=== PATIENT | female | born 1940 | race Two or more races ===

== ENCOUNTER 2021-01-23 12:55 | Emergency (ER) | payer MEDICAID ==
[~2021-01-23] VITALS: Ht 182.9 cm; Wt 107.0 kg
[~2021-01-23 12:55] MED LIST: AZIT500T2 PO; GLIP10TA10 PO; LISI10TA26 PO; METF-416 PO; NAPR-681 PO; PIOG15TA6 PO
[2021-01-23] MEDS ORDERED: MORPHINE SULFATE 4 MG/ML CPJ (NOT FOR IM USE) IV STA (13:13)
[2021-01-23] MEDS ORDERED: ONDANSETRON HCL 4MG/2ML INJ IV STA (13:13)
[2021-01-23] MEDS ORDERED: SODIUM CHLORIDE 0.9% 500 ML IV ONE (13:15)
[2021-01-23 13:57] LABS: BASOPHILS % 1.1 % (0.0-2.0); EOSINOPHILS % 2.3 % (0.0-5.0); HEMATOCRIT. 40.2 % (36.0-48.0); HEMOGLOBIN. 13.5 g/dL (12.0-16.0); LYMPHOCYTES % 25.5 % (20.0-50.0); MEAN CORPUSCULAR HEMOGLOBIN 30.8 pg (28.0-32.0); MEAN CORPUSCULAR VOLUME 91.7 fL (81.0-99.0); MONOCYTES % 10.4 % (2.0-8.0); NEUTROPHILS % 60.7 % (40.0-76.0); PLATELET 170 x1000/uL (130-400); RED BLOOD CELL COUNT 4.39 mill/uL (4.2-5.4); RED CELL DISTRIBUTION WIDTH 12.9 % (11.6-14.6)
[2021-01-23 14:01] LABS: CHLORIDE 104 mEq/L (98-107)
[2021-01-23 15:16] LABS: PROTHROMBIN TIME 10.6 sec (9.6-11.0)
[2021-01-23 19:47] VITALS: BP 169/69
== END 2021-01-23 20:13 | disposition short-term general hospital (02) ==
LOC: ER 12:55 → EDBEDREQTM 16:53 → EDBEDREQ 16:53 → EDBEDREQSVC 16:53 → EDBEDREQ 17:03 → CANBEDREQ 18:03 → ER 20:13
DX: R10.10 Upper abdominal pain, unspecified (principal); R10.13 Epigastric pain; I10 Essential (primary) hypertension; E11.9 Type 2 diabetes mellitus without complications; Z86.73 Personal history of transient ischemic attack (TIA), and cerebral infarction without residual deficits; Z79.84 Long term (current) use of oral hypoglycemic drugs
CPT/HCPCS: 36415; 71045; 74176; 80053; 83690; 83880; 84484; 85025; 85610; 93005; 96361; 96374; 96375; 99285; J2270; J2405; J7040; Z7610